=== PATIENT | female | born 1965 | race Caucasian/White ===

== ENCOUNTER 2018-01-21 15:27 | Emergency (ER) | payer OTHER, BC ==
[2018-01-21] MEDS: CYCLOBENZAPRINE 5MG TABLET PO ×2 (17:15→17:21)
== END 2018-01-21 17:31 | disposition home or self-care (01) ==
LOC: M ED 15:27
DX: S39.012A Strain of muscle, fascia and tendon of lower back, initial encounter (principal); V44.5XXA Car driver injured in collision with heavy transport vehicle or bus in traffic accident, initial encounter; Y92.410 Unspecified street and highway as the place of occurrence of the external cause; Y93.9 Activity, unspecified; Y99.9 Unspecified external cause status; K21.9 Gastro-esophageal reflux disease without esophagitis; Z79.899 Other long term (current) drug therapy; Z88.5 Allergy status to narcotic agent
CPT/HCPCS: 99283

== ENCOUNTER 2019-03-12 13:45 | Emergency (ER) | payer OTHER, BC ==
[~2019-03-12] VITALS: Ht 170.2 cm; Wt 86.4 kg
[~2019-03-12 13:45] MED LIST: ALBU17IN2 INH; ALBUTEROL; CYCL5TAB PO; DEXI60CA2 PO; IBUP-1022 PO; LIDO5DIS41 TD; OMEP40CA2 PO; SUCR1TAB56 PO; SYMB80INH INH; VENTOLIN; VITA50005 PO
[2019-03-12 13:46] VITALS: BP 134/79
--- NOTE | 2019-03-12 14:24 | REP ---
Clinical: Trauma. Technique: AP, lateral, bilateral oblique views right foot . Findings: The osseous structures and joint spaces are intact and normal. There is no evidence for acute fracture or dislocation. Surrounding soft tissues are unremarkable. No subcutaneous emphysema or radiodense foreign body. Impression: No acute fracture or dislocation. Electronically Signed by Simón Dewey MD 03/12/2019 02:15 P
== END 2019-03-12 15:09 | disposition home or self-care (01) ==
LOC: M ED 13:45
DX: S90.31XA Contusion of right foot, initial encounter (principal); W22.8XXA Striking against or struck by other objects, initial encounter; Y92.89 Other specified places as the place of occurrence of the external cause; Y99.0 Civilian activity done for income or pay; J45.909 Unspecified asthma, uncomplicated; K21.9 Gastro-esophageal reflux disease without esophagitis; K27.9 Peptic ulcer, site unspecified, unspecified as acute or chronic, without hemorrhage or perforation; K44.9 Diaphragmatic hernia without obstruction or gangrene; Z79.899 Other long term (current) drug therapy; Z88.5 Allergy status to narcotic agent

== ENCOUNTER → 2019-09-10 | Outpatient (CLI) | payer OTHER, BC ==
[~2019-09-10] MED LIST changes: -ALBU17IN2 INH; -OMEP40CA2 PO; +OMEP40CA97 PO; +PROV108A INH
--- NOTE | 2019-09-13 09:21 | REP ---
MRI right shoulder without contrast: History: Impingement syndrome right shoulder. Rule out rotator cuff tear. Comparison radiographs August 16, 2011. Technique: Axial, oblique coronal, and oblique sagittal imaging planes were utilized. T1 and T2-weighted scans were obtained in the usual fashion with and without fat saturation. MRI findings: There is subcortical cyst formation in the proximal humeral head anteriorly and posteriorly. This is a finding which may be associated with impingement. Cortical and medullary bone signal intensity are otherwise normal. Glenohumeral and acromioclavicular joint alignment is normal. There is tendinitis tendinosis change in the distal supraspinatus tendon with swelling and increased signal intensity on oblique coronal T1-weighted scans. At the distal tendon attachment footprint, there is a focus of T2 hyperintensity consistent with a partial thickness distal supraspinatus lesion. Superior labrum appears intact. There is no evidence of anterior or posterior labral tear. The infraspinatus and subscapularis tendons and the biceps tendon appear intact. 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 No full-thickness supraspinatus tear. Electronically Signed by Jerome Castaneda MD 09/13/2019 11:44 A
== END ==
LOC: M RAD 16:01
PROVIDERS: ATTEND Physician Assistant
DX: M75.41 Impingement syndrome of right shoulder (principal)

== ENCOUNTER → 2021-04-05 | Outpatient (CLI) | payer BC ==
[~2021-04-05] MED LIST changes: +OMEP40CA4 PO; -OMEP40CA97 PO
[2021-04-05 14:17] LABS: BASO % 0.1 % (0.0-1.0); HEMATOCRIT 43.5 % (36.0-47.0); HEMOGLOBIN 14.6 g/dl (12.0-15.5); LYMPH # 1.1 10^3/uL (1.5-5.0); LYMPH % 4.7 % (24.0-44.0); MEAN CORPUSCULAR HEMOGLOBIN 29.9 pg (27.0-33.0); MEAN CORPUSCULAR HGB CONC 33.6 g/dl (32.0-36.5); MONO # 1.1 10^3/uL (0.0-0.8); MONO % 4.5 % (2.0-8.0); NEUTROPHILS # 21.6 10^3/uL (1.5-8.5); NEUTROPHILS % 89.9 % (36.0-66.0); PLATELET COUNT, AUTOMATED 425 10^3/uL (150-450); RED BLOOD COUNT 4.89 10^6/uL (4.00-5.40)
[2021-04-05 15:11] LABS: ERYTHROCYTE SEDIMENTATION RATE 7 mm/hr (0-30)
[2021-04-05 16:34] LABS: C REACTIVE PROTEIN QUANTITATIV 2.01 MG/DL (0.00-0.30); RHEUMATOID FACTOR QUANT < 10.0 IU/ML (<15.0); URIC ACID 5.9 MG/DL (2.6-6.0)
== END ==
LOC: M LAB 13:26
PROVIDERS: ATTEND Physician Assistant Surgical
DX: M17.0 Bilateral primary osteoarthritis of knee (principal)